=== PATIENT | male | born 2000 | race African-American/Black ===

== ENCOUNTER 2024-06-18 15:51 | Outpatient (REF) | payer OTHER, SELFPAY ==
--- NOTE | ~2024-06-18 | MR_ITS ---
EXAMINATION: MR KNEE WITHOUT CONTRAST, RIGHT CLINICAL INFORMATION: Pain. Football injury 06/13/2024. COMPARISON: None available. TECHNIQUE: MRI of the knee without contrast was performed using routine sequences on a high-field scanner. FINDINGS: MENISCI: Medial Meniscus: There is edema signal around the capsular margin of the posterior horn without a discrete ramp lesion. No appreciable tears. Lateral Meniscus: A tear is suspected at the capsular attachments of the posterior horn including the posterior popliteomeniscal fascicles. No discrete meniscal tear, however. The popliteus tendon is intact, though there is a popliteus muscle strain with surrounding edema signal. A strain is also noted at the origin of the soleus muscle. LIGAMENTS: Cruciate: Tear of the ACL at its midsubstance appears complete. Surrounding soft tissues are edematous. PCL is normal. Collateral: Edema signal is noted surrounding the fibular collateral ligament proximally, most consistent with a grade 1 sprain. No appreciable tears. Posterolateral corner structures appear intact. A very mild grade 1 sprain is suspected at the origin of the MCL along the deep fibers, characterized by mild ligamentous thickening and edema signal. The posterior joint capsule appears sprained at the tibial attachment with surrounding edema signal. EXTENSOR MECHANISM: Intact ARTICULAR CARTILAGE/BONE: Patellofemoral Compartment: Normal Medial Compartment: There is a mild osseous contusion along the posterior margin of the medial tibial plateau. Articular cartilage appears normal. Lateral Compartment: At the lateral third of the anterior weight-bearing surface of the lateral femoral condyle, there is a 1 x 1 cm focus of mild articular cortical depression with intense underlying edema signal, consistent with a very mild articular cortical depression fracture. An osseous contusion is present in the posterior margin of the lateral tibial plateau. Articular cartilage is well preserved. JOINT FLUID AND BURSAE: Large joint effusion. No Benjamin's cyst. MR/MR knee RT wo con IMPRESSION: 1. Complete tear of the ACL. 2. Grade 1 sprains of the fibular collateral ligament and MCL. 3. Tear of the capsular attachments of the posterior horn of the lateral meniscus including the posterior popliteomeniscal fascicles. No discrete meniscal tears. 4. Mild articular cortical depression fracture at the lateral third of the anterior proximal surface of the lateral femoral condyle. Osseous contusions at the posterior margins of the medial and lateral tibial plateaus. 5. Large joint effusion. 6. Strains of the popliteus and soleus muscles. Electronically signed by: Wade Sweeney MD 06/18/2024 05:36 PM EDT RP
== END 2024-06-18 15:52 | disposition home or self-care (01) ==
LOC: HO.MRI 15:51
PROVIDERS: PCP Family Medicine; Visit Provider Family Medicine
DX: M25.561 Pain in right knee (principal)
CPT/HCPCS: 73721